=== PATIENT | male | born 1965 | race African-American/Black ===

== ENCOUNTER 2016-09-06 11:10 | Inpatient (IN) | payer OTHER ==
[2016-09-06 15:26] VITALS: BMI 26.6
[2016-09-06] MEDS ORDERED: chlordiazePOXIDE HCL 25 MG CAPSULE PO SCH (17:00)
--- NOTE | 2016-09-06 17:23 | HP ---
CIWA Score - CIWA Score Nausea/Vomitin-No Nausea/No Vomiting Muscle Tremors: 4-Moderate,w/Arms Extend Anxiety: 3 Agitation: 4-Moderately Restless Paroxysmal Sweats: 3 Orientation: 0-Oriented Tacttile Disturbances: 0-None Auditory Disturbances: 0-None Visual Disturbances: 0-None Headache: 0-None Present CIWA-Ar Total Score: 14 Admission ROS BHS - HPI Chief Complaint: I am using too much drugs and alcohol and need help. Allergies/Adverse Reactions: Allergies Allergy/AdvReac Type Severity Reaction Status Date / Time No Known Allergies Allergy Verified 09/06/16 15:50 History of Present Illness: pt is a 51yr old male with a history of alcohol dependence seeking detox for treatment. Exam Limitations: No Limitations - Ebola screening Have you traveled outside of the country in the last 21 days: No Have you had contact with anyone from an Ebola affected area: No Have you been sick,other than usual withdrawal symptoms: No Do you have a fever: No - Review of Systems Constitutional: Chills, Night Sweats, Unintentional Wgt. Loss EENT: reports: No Symptoms Reported Respiratory: reports: No Symptoms reported Cardiac: reports: No Symptoms Reported GI: reports: Poor Fluid Intake : reports: No Symptoms Reported Integumentary: reports: No Symptoms Reported Neuro: reports: Tingling, Tremors Endocrine: reports: Flushing Hematology: reports: No Symptoms Reported Psychiatric: reports: Judgement Intact, Orientated x3, Agitated, Anxious Other Systems: Reviewed and Negative Patient History - Patient Medical History Hx Anemia: No Hx Asthma: No Hx Chronic Obstructive Pulmonary Disease (COPD): No Hx Cancer: No Hx Cardiac Disorders: No Hx Congestive Heart Failure: No Hx Hypertension: No Hx Hypercholesterolemia: No Hx Pacemaker: No HX Cerebrovascular Accident: No Hx Seizures: No Hx Dementia: No Hx Diabetes: No Hx Gastrointestinal Disorders: No Hx Liver Disease: No Hx Genitourinary Disorders: No Hx Sexually Transmitted Disorders: No Hx Renal Disease (ESRD): No Hx Thyroid Disease: No Hx Human Immunodeficiency Virus (HIV): No (neg) Hx Hepatitis C: No (neg) Hx Depression: No Hx Suicide Attempt: No (denies) Hx Bipolar Disorder: No Hx Schizophrenia: No - Patient Surgical History Past Surgical History: No Hx Neurologic Surgery: No Hx Cataract Extraction: No Hx Cardiac Surgery: No Hx Lung Surgery: No Hx Breast Surgery: No Hx Breast Biopsy: No Hx Abdominal Surgery: No Hx Appendectomy: No Hx Cholecystectomy: No Hx Genitourinary Surgery: No Hx Section: No Hx Orthopedic Surgery: No Anesthesia Reaction: No - PPD History Previous Implant?: Yes Documented Results: Negative w/o proof Implanted On Prior R Admission?: Yes PPD to be Administered?: Yes - Reproductive History Patient is a Female of Child Bearing Age (11 -55 yrs old): No - Smoking Cessation Smoking history: Current every day smoker Have you smoked in the past 12 months: Yes Aproximately how many cigarettes per day: 20 Cigars Per Day: 0 Hx Chewing Tobacco Use: No Initiated information on smoking cessation: Yes 'Breaking Loose' booklet given: 09/06/16 - Substance & Tx. History Hx Alcohol Use: Yes Substance Use Type: Alcohol Hx Substance Use Treatment: Yes - Substances Abused Alcohol-beer/vodka Route: Oral Frequency: Daily Amount used: 2-6 pks./2 pts. Age of first use: 14 Date of Last Use: 09/06/16 Family Disease History - Family Disease History Family Disease History: Respiratory: Brother (ASTHMA,alcohol) Admission Physical Exam BHS - Vital Signs Vital Signs: Vital Signs - 24 hr 09/06/16 15:25 Temperature 97 F L Pulse Rate 64 Respiratory 18 Rate Blood Pressure 120/72 - Physical General Appearance: Yes: Appropriately Dressed, Mild Distress, Thin, Tremorous, Irritable, Sweating, Anxious HEENTM: Yes: Normal Voice Respiratory: Yes: Lungs Clear, Normal Breath Sounds, No Respiratory Distress Neck: Yes: Within Normal Limits Breast: Yes: Within Normal Limits Cardiology: Yes: Regular Rhythm, Regular Rate, S1, S2 Abdominal: Yes: Normal Bowel Sounds, Non Tender, Soft Genitourinary: Yes: Within Normal Limits Back: Yes: Normal Inspection Musculoskeletal: Yes: Back pain Extremities: Yes: Normal Inspection, Non-Tender, Tremors Neurological: Yes: Fully Oriented, Alert, Normal Response Integumentary: Yes: Normal Color Lymphatic: Yes: Within Normal Limits - Diagnostic (1) Alcohol dependence with uncomplicated withdrawal Current Visit: Yes Status: Chronic (2) Low back pain Current Visit: No Status: Chronic Qualifiers: Chronicity: chronic Back pain laterality: unspecified (3) Cocaine dependence Current Visit: Yes Status: Chronic Qualifiers: Substance use status: uncomplicated Qualified Code(s): F14.20 - Cocaine dependence, uncomplicated (4) Nicotine dependence Current Visit: Yes Status: Chronic Qualifiers: Nicotine product type: cigarettes Substance use status: uncomplicated Qualified Code(s): F17.210 - Nicotine dependence, cigarettes, uncomplicated Cleared for Admission BHS - Detox or Rehab [facility] Level of Care: Medically Managed Detox Regimen/Protocol: Librium S Breath Alcohol Content Breath Alcohol Content: 0.008 Urine Drug Screen - Results Drug Screen Negative: No Urine Drug Screen Results: OUMAR-Cocaine, OPI-Opiates
[2016-09-06] MEDS ORDERED: P-EPHED 60MG/TRIPROLIDI 2.5MG TABLET PO PRN (17:26)
[2016-09-06] MEDS ORDERED: IBUPROFEN 400 MG TABLET (FP) PO PRN (17:26)
[2016-09-06] MEDS ORDERED: ACETAMINOPHEN 325 MG TABLET (FP) PO PRN (17:26)
[2016-09-06] MEDS ORDERED: guaiFENesin/D-METHORPHAN HB 10 ML UNIT-DOSE CUPS PO PRN (17:26)
[2016-09-06] MEDS ORDERED: MAG HYDROX/AL HYDROX/SIMETH 30 ML UNIT-DOSE CUP PO PRN (17:26)
[2016-09-06] MEDS ORDERED: diphenhydrAMINE HCL 50 MG CAPSULE PO PRN (17:26)
[2016-09-06] MEDS ORDERED: hydrOXYzine PAMOATE 50 MG CAPSULE (FP) PO PRN (17:26)
[2016-09-06] MEDS ORDERED: NICOTINE POLACRILEX 4 MG GUM BC PRN (17:26)
[2016-09-06] MEDS ORDERED: MAGNESIUM HYDROX 2400MG/30ML ORAL SUSPENSION 30 ML CUP PO PRN (17:26)
[2016-09-06] MEDS ORDERED: chlordiazePOXIDE HCL 25 MG CAPSULE PO PRN (17:26)
[2016-09-06] MEDS ORDERED: MAGNESIUM CITRATE 300 ML BOTTLE PO PRN (17:26)
[2016-09-06] MEDS ORDERED: MENTHOL/PHENOL 1 EACH UD MM PRN (17:26)
[2016-09-06] MEDS ORDERED: LOPERAMIDE HCL 2 MG CAPSULE PO PRN (17:26)
[2016-09-06] MEDS ORDERED: chlordiazePOXIDE HCL 25 MG CAPSULE PO ONE (18:00)
[2016-09-06 22:29] LABS: URINE APPEARANCE CLEAR; URINE BILIRUBIN NEGATIVE (NEGATIVE); URINE BLOOD NEGATIVE (NEGATIVE); URINE COLOR YELLOW; URINE GLUCOSE (UA) NEGATIVE (NEGATIVE); URINE KETONE 1+ (NEGATIVE); URINE LEUK ESTERASE NEGATIVE (NEGATIVE); URINE NITRITE NEGATIVE (NEGATIVE); URINE PROTEIN NEGATIVE (NEGATIVE); URINE UROBILINOGEN NEGATIVE E.U./dl (0.2-1.0)
[2016-09-06] MEDS: THIAMINE HCL 100 MG TABLET (FP) PO SCH (22:54)
[2016-09-06] MEDS: chlordiazePOXIDE HCL 25 MG CAPSULE PO SCH (22:55)
[2016-09-07] MEDS: chlordiazePOXIDE HCL 25 MG CAPSULE PO SCH ×4 (07:02→23:09)
--- NOTE | 2016-09-07 09:14 | EKG ---
Test Reason : Blood Pressure : / mmHG Vent. Rate : 062 BPM Atrial Rate : 062 BPM P-R Int : 132 ms QRS Dur : 082 ms QT Int : 438 ms P-R-T Axes : 058 043 004 degrees QTc Int : 444 ms NORMAL SINUS RHYTHM NORMAL ECG NO PREVIOUS ECGS AVAILABLE Confirmed by SUGEY SHAIKH MD ([id number]) on 09/07/2016 9:14:11 AM Referred By: Confirmed By:SUGEY SHAIKH MD
[2016-09-07 10:07] LABS: MCH 31.8 pg (25.7-33.7); MCHC 33.3 g/dl (32.0-35.9); MEAN CELL VOLUME 95.4 fl (80-96); MEAN PLT VOLUME 8.8 fl (7.5-11.1); PLATELET COUNT 140 K/MM3 (134-434); RDW 14.1 % (11.9-15.9)
[2016-09-07 10:43] LABS: ALBUMIN 3.4 g/dl (3.4-5.0); ALK PHOS 64 U/L (45-117); ANION GAP 7 (8-16); CALCIUM 8.6 mg/dL (8.5-10.1); CO2 28 mmol/L (21-32); COCKROFT - GAULT 98.12; GLUCOSE,RANDOM 95 mg/dL (74-106); SGOT/AST 15 U/L (15-37); SGPT/ALT 21 U/L (12-78); TOT PROT 6.1 g/dl (6.4-8.2)
[2016-09-07] MEDS: PRENATAL VITAMINS W/ FOLIC ACID TABLET (FP) PO SCH (10:43)
[2016-09-07] MEDS: NICOTINE 21 MG/24 HOURS TOPICAL PATCH TD SCH (10:43)
--- NOTE | 2016-09-07 18:10 | PN ---
[facility] CIWA - CIWA Score Nausea/Vomitin-Mild Nausea/No Vomiting Muscle Tremors: 3 Anxiety: 2 Agitation: 3 Paroxysmal Sweats: 3 Orientation: 0-Oriented Tacttile Disturbances: 0-None Auditory Disturbances: 1-Very Mild Visual Disturbances: 2-Mild Sensitivity Headache: 0-None Present CIWA-Ar Total Score: 15 [facility] Progress Note (SOAP) Subjective: Fatigue, Sweating, Tremors. Objective: PT. A & O X 3. 09/07/16 18:09 Vital Signs Temperature 96.8 F L 09/07/16 06:53 Pulse Rate 54 L 09/07/16 06:53 Respiratory Rate 16 09/07/16 06:53 Blood Pressure 109/73 09/07/16 06:53 O2 Sat by Pulse Oximetry (%) Laboratory Last Values WBC 3.0 K/mm3 (4.0-10.0) L D 09/07/16 07:20 RBC 3.66 M/mm3 (4.00-5.60) L 09/07/16 07:20 Hgb 11.6 GM/dL (11.7-16.9) L D 09/07/16 07:20 Hct 34.9 % (35.4-49) L D 09/07/16 07:20 MCV 95.4 fl (80-96) 09/07/16 07:20 MCHC 33.3 g/dl (32.0-35.9) 09/07/16 07:20 RDW 14.1 % (11.9-15.9) 09/07/16 07:20 Plt Count 140 K/MM3 (134-434) D 09/07/16 07:20 MPV 8.8 fl (7.5-11.1) D 09/07/16 07:20 Sodium 140 mmol/L (136-145) 09/07/16 07:20 Potassium 3.7 mmol/L (3.5-5.1) 09/07/16 07:20 Chloride 105 mmol/L (98-107) 09/07/16 07:20 Carbon Dioxide 28 mmol/L (21-32) 09/07/16 07:20 Anion Gap 7 (8-16) L 09/07/16 07:20 BUN 15 mg/dL (7-18) D 09/07/16 07:20 Creatinine 1.0 mg/dL (0.7-1.3) 09/07/16 07:20 Creat Clearance w eGFR > 60 (>60) 09/07/16 07:20 Random Glucose 95 mg/dL (74-106) 09/07/16 07:20 Calcium 8.6 mg/dL (8.5-10.1) 09/07/16 07:20 Total Bilirubin 1.0 mg/dL (0.2-1.0) D 09/07/16 07:20 AST 15 U/L (15-37) 09/07/16 07:20 ALT 21 U/L (12-78) D 09/07/16 07:20 Alkaline Phosphatase 64 U/L (45-117) 09/07/16 07:20 Total Protein 6.1 g/dl (6.4-8.2) L 09/07/16 07:20 Albumin 3.4 g/dl (3.4-5.0) 09/07/16 07:20 Urine Color Yellow 09/06/16 21:30 Urine Appearance Clear 09/06/16 21:30 Urine pH 5.0 (5.0-8.0) D 09/06/16 21:30 Ur Specific [place] 1.015 (1.001-1.035) 09/06/16 21:30 Urine Protein Negative (NEGATIVE) 09/06/16 21:30 Urine Glucose (UA) Negative (NEGATIVE) 09/06/16 21:30 Urine Ketones 1+ (NEGATIVE) H 09/06/16 21:30 Urine Blood Negative (NEGATIVE) 09/06/16 21:30 Urine Nitrite Negative (NEGATIVE) 09/06/16 21:30 Urine Bilirubin Negative (NEGATIVE) 09/06/16 21:30 Urine Urobilinogen Negative E.U./dl (0.2-1.0) 09/06/16 21:30 Ur Leukocyte Esterase Negative (NEGATIVE) 09/06/16 21:30 RPR Titer Nonreactive (NONREACTIVE) 09/07/16 07:20 LABS NOTED. Assessment: 09/07/16 18:10 WITHDRAWAL SYMPTOMS. Plan: CONTINUE DETOX. REPEAT CBC TOMORROW AM. ADVISED PATIENT TO FOLLOW-UP WITH [facility] / REHAB MEDICAL PROVIDER AFTER DISCHARGE FROM DETOX FOR GENERAL MEDICAL ASSESSMENT AND FOR ABNORMAL ADMISSION LAB VALUES.
[2016-09-07] MEDS: THIAMINE HCL 100 MG TABLET (FP) PO SCH (23:09)
[2016-09-08] MEDS: chlordiazePOXIDE HCL 25 MG CAPSULE PO SCH ×3 (06:02→17:15)
[2016-09-08 09:56] LABS: MCH 31.9 pg (25.7-33.7); MCHC 33.5 g/dl (32.0-35.9); MEAN CELL VOLUME 95.2 fl (80-96); NEUTROPHILS 43.2 % (42.8-82.8); PLATELET COUNT 142 K/MM3 (134-434); RDW 13.9 % (11.9-15.9); WHITE BLOOD COUNT 2.3 K/mm3 (4.0-10.0)
[2016-09-08] MEDS: PRENATAL VITAMINS W/ FOLIC ACID TABLET (FP) PO SCH (10:28)
[2016-09-08] MEDS: NICOTINE 21 MG/24 HOURS TOPICAL PATCH TD SCH (10:30)
--- NOTE | 2016-09-08 16:01 | PN ---
S CIWA - CIWA Score Nausea/Vomitin Muscle Tremors: 4-Moderate,w/Arms Extend Anxiety: 4-Mod. Anxious/Guarded Agitation: 4-Moderately Restless Paroxysmal Sweats: No Perspiration Orientation: 0-Oriented Tacttile Disturbances: 1-Very Mild Itch/Numbness Auditory Disturbances: 0-None Visual Disturbances: 0-None Headache: 1-Very Mild CIWA-Ar Total Score: 17 [facility] Progress Note (SOAP) Subjective: Tremor, chills, sweating, interrupted sleep Objective: 09/08/16 15:59 Last Vital Signs Temp Pulse Resp BP Pulse Ox 98 F 83 18 99/65 09/08/16 13:57 09/08/16 13:57 09/08/16 13:57 09/08/16 13:57 Laboratory Tests 09/06/16 09/07/16 09/07/16 21:30 07:20 07:20 WBC 3.0 L D RBC 3.66 L Hgb 11.6 L D Hct 34.9 L D MCV 95.4 MCHC 33.3 RDW 14.1 Plt Count 140 D MPV 8.8 D Neutrophils % Lymphocytes % Monocytes % Eosinophils % Basophils % Sodium 140 Potassium 3.7 Chloride 105 Carbon Dioxide 28 Anion Gap 7 L BUN 15 D Creatinine 1.0 Creat Clearance w eGFR > 60 Random Glucose 95 Calcium 8.6 Total Bilirubin 1.0 D AST 15 ALT 21 D Alkaline Phosphatase 64 Total Protein 6.1 L Albumin 3.4 Urine Color Yellow Urine Appearance Clear Urine pH 5.0 D Ur Specific [place] 1.015 Urine Protein Negative Urine Glucose (UA) Negative Urine Ketones 1+ H Urine Blood Negative Urine Nitrite Negative Urine Bilirubin Negative Urine Urobilinogen Negative Ur Leukocyte Esterase Negative RPR Titer 09/07/16 09/08/16 07:20 08:00 WBC 2.3 L RBC 3.71 L Hgb 11.8 Hct 35.3 L MCV 95.2 MCHC 33.5 RDW 13.9 Plt Count 142 MPV 9.0 Neutrophils % 43.2 Lymphocytes % 37.0 Monocytes % 14.8 H Eosinophils % 4.0 Basophils % 1.0 Sodium Potassium Chloride Carbon Dioxide Anion Gap BUN Creatinine Creat Clearance w eGFR Random Glucose Calcium Total Bilirubin AST ALT Alkaline Phosphatase Total Protein Albumin Urine Color Urine Appearance Urine pH Ur Specific [place] Urine Protein Urine Glucose (UA) Urine Ketones Urine Blood Urine Nitrite Urine Bilirubin Urine Urobilinogen Ur Leukocyte Esterase RPR Titer Nonreactive Labs noted Assessment: 09/08/16 16:00 Withdrawal symptoms Plan: Continue detox
[2016-09-08] MEDS: THIAMINE HCL 100 MG TABLET (FP) PO SCH (22:36)
[2016-09-08] MEDS: chlordiazePOXIDE 5 MG CAPSULE PO SCH (22:37)
[2016-09-09] MEDS: chlordiazePOXIDE 5 MG CAPSULE PO SCH ×3 (05:50→17:47)
[2016-09-09] MEDS: PRENATAL VITAMINS W/ FOLIC ACID TABLET (FP) PO SCH (10:34)
[2016-09-09] MEDS: NICOTINE 21 MG/24 HOURS TOPICAL PATCH TD SCH (10:34)
--- NOTE | 2016-09-09 15:30 | PN ---
[facility] Progress Note (SOAP) Subjective: Sweating,interrupted sleep,restless. Objective: 09/09/16 15:29 Vital Signs - 8 hr 09/09/16 09:40 Temperature 96.8 F L Pulse Rate 72 Respiratory 18 Rate Blood Pressure 106/69 Laboratory Last Values WBC 2.3 K/mm3 (4.0-10.0) L 09/08/16 08:00 RBC 3.71 M/mm3 (4.00-5.60) L 09/08/16 08:00 Hgb 11.8 GM/dL (11.7-16.9) 09/08/16 08:00 Hct 35.3 % (35.4-49) L 09/08/16 08:00 MCV 95.2 fl (80-96) 09/08/16 08:00 MCHC 33.5 g/dl (32.0-35.9) 09/08/16 08:00 RDW 13.9 % (11.9-15.9) 09/08/16 08:00 Plt Count 142 K/MM3 (134-434) 09/08/16 08:00 MPV 9.0 fl (7.5-11.1) 09/08/16 08:00 Neutrophils % 43.2 % (42.8-82.8) 09/08/16 08:00 Lymphocytes % 37.0 % (8-40) 09/08/16 08:00 Monocytes % 14.8 % (3.8-10.2) H 09/08/16 08:00 Eosinophils % 4.0 % (0-4.5) 09/08/16 08:00 Basophils % 1.0 % (0-2.0) 09/08/16 08:00 Sodium 140 mmol/L (136-145) 09/07/16 07:20 Potassium 3.7 mmol/L (3.5-5.1) 09/07/16 07:20 Chloride 105 mmol/L (98-107) 09/07/16 07:20 Carbon Dioxide 28 mmol/L (21-32) 09/07/16 07:20 Anion Gap 7 (8-16) L 09/07/16 07:20 BUN 15 mg/dL (7-18) D 09/07/16 07:20 Creatinine 1.0 mg/dL (0.7-1.3) 09/07/16 07:20 Creat Clearance w eGFR > 60 (>60) 09/07/16 07:20 Random Glucose 95 mg/dL (74-106) 09/07/16 07:20 Calcium 8.6 mg/dL (8.5-10.1) 09/07/16 07:20 Total Bilirubin 1.0 mg/dL (0.2-1.0) D 09/07/16 07:20 AST 15 U/L (15-37) 09/07/16 07:20 ALT 21 U/L (12-78) D 09/07/16 07:20 Alkaline Phosphatase 64 U/L (45-117) 09/07/16 07:20 Total Protein 6.1 g/dl (6.4-8.2) L 09/07/16 07:20 Albumin 3.4 g/dl (3.4-5.0) 09/07/16 07:20 Urine Color Yellow 09/06/16 21:30 Urine Appearance Clear 09/06/16 21:30 Urine pH 5.0 (5.0-8.0) D 09/06/16 21:30 Ur Specific [place] 1.015 (1.001-1.035) 09/06/16 21:30 Urine Protein Negative (NEGATIVE) 09/06/16 21:30 Urine Glucose (UA) Negative (NEGATIVE) 09/06/16 21:30 Urine Ketones 1+ (NEGATIVE) H 09/06/16 21:30 Urine Blood Negative (NEGATIVE) 09/06/16 21:30 Urine Nitrite Negative (NEGATIVE) 09/06/16 21:30 Urine Bilirubin Negative (NEGATIVE) 09/06/16 21:30 Urine Urobilinogen Negative E.U./dl (0.2-1.0) 09/06/16 21:30 Ur Leukocyte Esterase Negative (NEGATIVE) 09/06/16 21:30 RPR Titer Nonreactive (NONREACTIVE) 09/07/16 07:20 labs noted Assessment: 09/09/16 15:29 Withdrawal sx. Plan: Continue detox
[2016-09-09] MEDS: chlordiazePOXIDE HCL 10 MG CAPSULE PO SCH (22:56)
[2016-09-09] MEDS: THIAMINE HCL 100 MG TABLET (FP) PO SCH (22:56)
[2016-09-10] MEDS: chlordiazePOXIDE HCL 10 MG CAPSULE PO SCH (05:46)
--- NOTE | 2016-09-10 09:42 | DS ---
[facility] Detox Discharge Summary Admission Date: 09/06/16 Discharge Date: 09/10/16 - History Present History: Alcohol Dependence, Cocaine Dependence Additional Comments: DETOX COMPLETED. ALERT O X 3. NAD. Pertinent Past History: LOW BACK PAIN DENIES ANY OTHER PMHx - Physical Exam Results Vital Signs: Vital Signs Temperature 96.9 F L 09/10/16 06:53 Pulse Rate 62 09/10/16 06:53 Respiratory Rate 18 09/10/16 06:53 Blood Pressure 108/79 09/10/16 06:53 O2 Sat by Pulse Oximetry (%) Pertinent Admission Physical Exam Findings: WITHDRAWAL SX Laboratory Last Values WBC 2.3 K/mm3 (4.0-10.0) L 09/08/16 08:00 RBC 3.71 M/mm3 (4.00-5.60) L 09/08/16 08:00 Hgb 11.8 GM/dL (11.7-16.9) 09/08/16 08:00 Hct 35.3 % (35.4-49) L 09/08/16 08:00 MCV 95.2 fl (80-96) 09/08/16 08:00 MCHC 33.5 g/dl (32.0-35.9) 09/08/16 08:00 RDW 13.9 % (11.9-15.9) 09/08/16 08:00 Plt Count 142 K/MM3 (134-434) 09/08/16 08:00 MPV 9.0 fl (7.5-11.1) 09/08/16 08:00 Neutrophils % 43.2 % (42.8-82.8) 09/08/16 08:00 Lymphocytes % 37.0 % (8-40) 09/08/16 08:00 Monocytes % 14.8 % (3.8-10.2) H 09/08/16 08:00 Eosinophils % 4.0 % (0-4.5) 09/08/16 08:00 Basophils % 1.0 % (0-2.0) 09/08/16 08:00 Sodium 140 mmol/L (136-145) 09/07/16 07:20 Potassium 3.7 mmol/L (3.5-5.1) 09/07/16 07:20 Chloride 105 mmol/L (98-107) 09/07/16 07:20 Carbon Dioxide 28 mmol/L (21-32) 09/07/16 07:20 Anion Gap 7 (8-16) L 09/07/16 07:20 BUN 15 mg/dL (7-18) D 09/07/16 07:20 Creatinine 1.0 mg/dL (0.7-1.3) 09/07/16 07:20 Creat Clearance w eGFR > 60 (>60) 09/07/16 07:20 Random Glucose 95 mg/dL (74-106) 09/07/16 07:20 Calcium 8.6 mg/dL (8.5-10.1) 09/07/16 07:20 Total Bilirubin 1.0 mg/dL (0.2-1.0) D 09/07/16 07:20 AST 15 U/L (15-37) 09/07/16 07:20 ALT 21 U/L (12-78) D 09/07/16 07:20 Alkaline Phosphatase 64 U/L (45-117) 09/07/16 07:20 Total Protein 6.1 g/dl (6.4-8.2) L 09/07/16 07:20 Albumin 3.4 g/dl (3.4-5.0) 09/07/16 07:20 Urine Color Yellow 09/06/16 21:30 Urine Appearance Clear 09/06/16 21:30 Urine pH 5.0 (5.0-8.0) D 09/06/16 21:30 Ur Specific [place] 1.015 (1.001-1.035) 09/06/16 21:30 Urine Protein Negative (NEGATIVE) 09/06/16 21:30 Urine Glucose (UA) Negative (NEGATIVE) 09/06/16 21:30 Urine Ketones 1+ (NEGATIVE) H 09/06/16 21:30 Urine Blood Negative (NEGATIVE) 09/06/16 21:30 Urine Nitrite Negative (NEGATIVE) 09/06/16 21:30 Urine Bilirubin Negative (NEGATIVE) 09/06/16 21:30 Urine Urobilinogen Negative E.U./dl (0.2-1.0) 09/06/16 21:30 Ur Leukocyte Esterase Negative (NEGATIVE) 09/06/16 21:30 RPR Titer Nonreactive (NONREACTIVE) 09/07/16 07:20 - Treatment Hospital Course: Detox Protocol Followed, Detoxed Safely, Responded well, Discharged Condition Good, Rehab Referral Accepted Patient has Accepted a Rehab Referral to: [facility] - Medication Discharge Medications: Ambulatory Orders NK [No Known Home Medication] 12/14/13 - Diagnosis (1) Alcohol dependence with uncomplicated withdrawal Status: Acute (2) Cocaine dependence Status: Acute Qualifiers: Substance use status: uncomplicated Qualified Code(s): F14.20 - Cocaine dependence, uncomplicated (3) Nicotine dependence Status: Acute Qualifiers: Nicotine product type: cigarettes Substance use status: in withdrawal Qualified Code(s): F17.213 - Nicotine dependence, cigarettes, with withdrawal (4) Low back pain Status: Chronic Qualifiers: Chronicity: chronic Back pain laterality: unspecified - AMA Did Patient Leave Against Medical Advice: No
[2016-09-10 09:59] VITALS: BP 106/74; PULSE 70; TEMP 96.4
== END 2016-09-10 11:10 | disposition home or self-care (01) | DRG 774 ==
LOC: YASAS 11:10 → Y3N 16:59
PROVIDERS: ADMIT Internal Medicine; ATTEND Internal Medicine
PROC: HZ2ZZZZ Detoxification Services for Substance Abuse Treatment (ICD-10-PCS; principal; 2016-09-06)
DX: F10.230 Alcohol dependence with withdrawal, uncomplicated (principal); F14.20 Cocaine dependence, uncomplicated; F17.210 Nicotine dependence, cigarettes, uncomplicated; M54.5 Low back pain; G89.29 Other chronic pain
CPT/HCPCS: 36415; 80053; 81003; 85025; 85027; 86593; 93005; 93010

== ENCOUNTER 2019-03-14 20:01 | Inpatient (IN) | payer OTHER ==
[2019-03-14 20:19] VITALS: BMI 27.3
[2019-03-14] MEDS ORDERED: SODIUM CHLORIDE 2,449 ML IV ONE (20:45)
[2019-03-14 21:45] LABS: BASO % 0.4 % (0-2.0); EOS % 0.8 % (0-4.5); HEMOGLOBIN 11.1 GM/dL (11.7-16.9); LYMPH % 6.4 % (8-40); MCH 32.4 pg (25.7-33.7); MCHC 33.7 g/dl (32.0-35.9); MEAN CELL VOLUME 96.2 fl (80-96); MEAN PLT VOLUME 8.4 fl (7.5-11.1); MONO % 8.7 % (3.8-10.2); NEUT % 83.7 % (42.8-82.8); PLATELET COUNT 222 K/MM3 (134-434); RBC 3.43 M/mm3 (4.00-5.60); RDW 13.3 % (11.9-15.9); VENOUS PC02 39.9 mmHg (38-52); VENOUS PH 7.44 (7.31-7.41); WHITE BLOOD COUNT 8.6 K/mm3 (4.0-10.0)
[2019-03-14 21:46] LABS: VENOUS PO2 < 49 mmHg (28-48)
[2019-03-14 22:20] LABS: ALBUMIN 3.4 g/dl (3.4-5.0); BILIRUBIN,TOTAL 0.7 mg/dL (0.2-1); BLOOD UREA NITROGEN 19.7 mg/dL (7-18); CALCIUM 8.8 mg/dL (8.5-10.1); POTASSIUM 3.9 mmol/L (3.5-5.1); TOT PROT 6.6 g/dl (6.4-8.2)
[2019-03-14] MEDS ORDERED: ACETAMINOPHEN 1000 MG/100 ML VIAL (NON FORMULARY) IVPB ONE (22:23)
[2019-03-14] MEDS ORDERED: PIPERACILLIN/TAZOB 3.375 GM 3.375 GM in DEXTROSE 5%-WATER - 50 ML IVPB ONE (22:23)
[2019-03-14] MEDS ORDERED: ACETAMINOPHEN INJECTION 100 ML IVPB ONE (23:14)
[2019-03-14] MEDS ORDERED: PIPERACILLIN/TAZOB 3.375 GM 3.375 GM/50 ML BAG IVPB ONE (23:14)
[2019-03-14 23:35] LABS: METHADONE, UR NEGATIVE ng/ml (CUTOFF=300); OPIATES, URI NEGATIVE ng/ml (CUTOFF=300); PHENCYCLIDINE,URINE NEGATIVE ng/ml (CUTOFF=25); URINE AMPHETAMINES NEGATIVE ng/ml (CUTOFF=500); URINE BARBITURATES NEGATIVE ng/ml (CUTOFF=200); URINE BENZODIAZEPINES NEGATIVE ng/ml (CUTOFF=200)
[2019-03-14 23:36] LABS: COCAINE, UR POSITIVE ng/ml (CUTOFF=300); EPI CELLS 5.2 /HPF (0-5/HPF); HYALINE CASTS 8 /lpf (0-8); PH,URINE 5.5 (5.0-8.0); URINE APPEARANCE CLEAR; URINE BACTERIA 24.4 /hpf (NEGATIVE); URINE BILIRUBIN NEGATIVE (NEGATIVE); URINE COLOR YELLOW; URINE GLUCOSE (UA) NEGATIVE (NEGATIVE); URINE KETONE TRACE (NEGATIVE); URINE LEUK ESTERASE 1+ (NEGATIVE); URINE NITRITE NEGATIVE (NEGATIVE); URINE PROTEIN TRACE (NEGATIVE); URINE RBC 2 /hpf (0-4); URINE WBC 11 /hpf (0-5)
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
[2019-03-15] MEDS ORDERED: CEFTRIAXONE 1,000 MG in DEXTROSE 5%-WATER - 50 ML IVPB STA (02:54)
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
[2019-03-15] MEDS ORDERED: cefTRIAXone SODIUM 1 GM VIAL ONE (04:16)
[2019-03-15] MEDS ORDERED: CEFTRIAXONE 1 GM/50 ML BAG ONE (04:16)
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
[2019-03-15 05:09] LABS: INR 1.12 (0.83-1.09); PROTHROMBIN TIME (PATIENT) 13.2 SEC (9.7-13.0)
[2019-03-15 05:12] LABS: ACTIVATED PTT 29.6 SECONDS (25.2-36.5)
[2019-03-15] MEDS: SODIUM CHLORIDE 1,000 ML IV SCH (05:15)
[2019-03-15] MEDS ORDERED: FOLIC ACID INJECTION - 1 MG, THIAMINE HCL 100 MG, MULTIVIT INJECTION ADULT 10 ML in SOD... IVPB ONE (05:15)
[2019-03-15] MEDS ORDERED: chlordiazePOXIDE HCL 10 MG CAPSULE PO PRN (05:23)
[2019-03-15] MEDS ORDERED: chlordiazePOXIDE HCL 25 MG CAPSULE ONE (05:30)
[2019-03-15] MEDS ORDERED: CLINDAMYCIN 600MG PREMIX IVPB 600 MG/50 ML BAG IVPB ONE (05:31)
[2019-03-15] MEDS: chlordiazePOXIDE HCL 25 MG CAPSULE PO SCH ×3 (05:46→21:19)
[2019-03-15] MEDS: CLINDAMYCIN 600MG PREMIX IVPB 600 MG/50 ML BAG IVPB SCH ×4 (05:46→21:17)
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
--- NOTE | 2019-03-15 10:03 | EKG ---
Test Reason : Blood Pressure : / mmHG Vent. Rate : 070 BPM Atrial Rate : 070 BPM P-R Int : 128 ms QRS Dur : 080 ms QT Int : 456 ms P-R-T Axes : 057 047 -16 degrees QTc Int : 492 ms NORMAL SINUS RHYTHM NONSPECIFIC T WAVE ABNORMALITY PROLONGED QT ABNORMAL ECG WHEN COMPARED WITH ECG OF 06-SEP-2016 17:42, NO SIGNIFICANT CHANGE WAS FOUND Confirmed by AYANA LO MD ([id number]) on 03/15/2019 10:02:40 AM Referred By: Confirmed By:AYANA LO MD
[2019-03-15] MEDS: FOLIC ACID 1 MG TABLET (FP) PO SCH (11:04)
[2019-03-15] MEDS: MULTIVITAMINS (DAILY MVI) TABLET (FP) PO SCH (11:04)
[2019-03-15] MEDS: THIAMINE HCL 100 MG TABLET (FP) PO SCH (11:05)
[2019-03-15] MEDS: ENOXAPARIN NA (PORCINE) 40 MG/0.4 ML DISP.SYRIN SQ SCH (11:11)
[2019-03-15] MEDS: CEFTRIAXONE 1 GM in DEXTROSE 5%-WATER - 50 ML IVPB SCH (11:39)
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
[2019-03-15] MEDS ORDERED: ACETAMINOPHEN 325 MG TABLET (FP) PO ONE (21:22)
[2019-03-16] MEDS: SODIUM CHLORIDE 1,000 ML IV SCH (06:52)
[2019-03-16] MEDS: CLINDAMYCIN 600MG PREMIX IVPB 600 MG/50 ML BAG IVPB SCH ×2 (06:53→14:36)
[2019-03-16] MEDS: chlordiazePOXIDE 5 MG CAPSULE PO SCH ×3 (06:54→21:37)
[2019-03-16 08:51] LABS: BASO % 0.4 % (0-2.0); EOS % 2.7 % (0-4.5); HEMATOCRIT 28.4 % (35.4-49); HEMOGLOBIN 9.6 GM/dL (11.7-16.9); LYMPH % 14.6 % (8-40); MCH 32.2 pg (25.7-33.7); MCHC 33.9 g/dl (32.0-35.9); MEAN CELL VOLUME 94.8 fl (80-96); MEAN PLT VOLUME 8.4 fl (7.5-11.1); MONO % 10.1 % (3.8-10.2); NEUT % 72.2 % (42.8-82.8); PLATELET COUNT 180 K/MM3 (134-434); RDW 13.2 % (11.9-15.9)
[2019-03-16] MEDS ORDERED: cefTRIAXone SODIUM 1 GM VIAL ONE (08:51)
[2019-03-16] MEDS ORDERED: DEXTROSE 5%-WATER - 50 ML IVPB ONE (08:52)
[2019-03-16 09:25] LABS: ALBUMIN 2.3 g/dl (3.4-5.0); BILIRUBIN,TOTAL 0.5 mg/dL (0.2-1); BLOOD UREA NITROGEN 9.1 mg/dL (7-18); CALCIUM 7.6 mg/dL (8.5-10.1); CREATININE 0.8 mg/dL (0.55-1.3); PHOSPHOROUS 2.1 mg/dL (2.5-4.9); POTASSIUM 3.3 mmol/L (3.5-5.1); TOT PROT 5.2 g/dl (6.4-8.2)
[2019-03-16] MEDS: FOLIC ACID 1 MG TABLET (FP) PO SCH (09:25)
[2019-03-16] MEDS: CEFTRIAXONE 1 GM in DEXTROSE 5%-WATER - 50 ML IVPB SCH (09:25)
[2019-03-16] MEDS: THIAMINE HCL 100 MG TABLET (FP) PO SCH (09:25)
[2019-03-16] MEDS: MULTIVITAMINS (DAILY MVI) TABLET (FP) PO SCH (09:25)
[2019-03-16] MEDS: ENOXAPARIN NA (PORCINE) 40 MG/0.4 ML DISP.SYRIN SQ SCH (09:25)
[2019-03-16] MEDS ORDERED: POTASSIUM CHLORIDE TABS 20 MEQ TABLET.ER (FP) PO ONE (11:41)
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
[2019-03-16] MEDS ORDERED: SODIUM CHLORIDE 1,000 ML IV SCH (14:47)
[2019-03-16] MEDS: POTASSIUM CHLORIDE TABS 20 MEQ TABLET.ER (FP) PO SCH (15:39)
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
[2019-03-17] MEDS ORDERED: chlordiazePOXIDE HCL 10 MG CAPSULE PO PRN
[2019-03-17] MEDS ORDERED: chlordiazePOXIDE 5 MG CAPSULE ONE ×3 (06:00→21:48)
[2019-03-17] MEDS: chlordiazePOXIDE HCL 10 MG CAPSULE PO SCH ×3 (06:07→21:49)
[2019-03-17 09:11] LABS: BASO % 0.6 % (0-2.0); EOS % 5.2 % (0-4.5); HEMATOCRIT 28.5 % (35.4-49); HEMOGLOBIN 9.8 GM/dL (11.7-16.9); LYMPH % 18.5 % (8-40); MCH 32.7 pg (25.7-33.7); MCHC 34.5 g/dl (32.0-35.9); MEAN CELL VOLUME 94.7 fl (80-96); MEAN PLT VOLUME 8.5 fl (7.5-11.1); MONO % 9.3 % (3.8-10.2); NEUT % 66.4 % (42.8-82.8); PLATELET COUNT 187 K/MM3 (134-434); RBC 3.01 M/mm3 (4.00-5.60); RDW 13.6 % (11.9-15.9)
[2019-03-17 09:56] LABS: ALBUMIN 2.4 g/dl (3.4-5.0); BILIRUBIN,TOTAL 0.4 mg/dL (0.2-1); CALCIUM 8.2 mg/dL (8.5-10.1); CREATININE 0.9 mg/dL (0.55-1.3); POTASSIUM 4.1 mmol/L (3.5-5.1); TOT PROT 5.4 g/dl (6.4-8.2)
[2019-03-17] MEDS: POTASSIUM CHLORIDE TABS 20 MEQ TABLET.ER (FP) PO SCH (10:33)
[2019-03-17] MEDS: FOLIC ACID 1 MG TABLET (FP) PO SCH (10:34)
[2019-03-17] MEDS: ENOXAPARIN NA (PORCINE) 40 MG/0.4 ML DISP.SYRIN SQ SCH (10:34)
[2019-03-17] MEDS: MULTIVITAMINS (DAILY MVI) TABLET (FP) PO SCH (10:34)
[2019-03-17] MEDS: THIAMINE HCL 100 MG TABLET (FP) PO SCH (10:34)
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
[2019-03-18] MEDS ORDERED: chlordiazePOXIDE HCL 10 MG CAPSULE PO ONE (05:00)
[2019-03-18] MEDS ORDERED: chlordiazePOXIDE 5 MG CAPSULE ONE (05:22)
[2019-03-18 08:39] LABS: BASO % 0.8 % (0-2.0); EOS % 7.9 % (0-4.5); HEMATOCRIT 29.3 % (35.4-49); HEMOGLOBIN 9.9 GM/dL (11.7-16.9); LYMPH % 25.4 % (8-40); MCH 32.3 pg (25.7-33.7); MEAN CELL VOLUME 95.1 fl (80-96); MEAN PLT VOLUME 8.2 fl (7.5-11.1); MONO % 8.9 % (3.8-10.2); PLATELET COUNT 197 K/MM3 (134-434); RBC 3.08 M/mm3 (4.00-5.60); RDW 13.3 % (11.9-15.9)
[2019-03-18 09:35] LABS: ALBUMIN 2.5 g/dl (3.4-5.0); ALK PHOS 66 U/L (45-117); ANION GAP 4 MMOL/L (8-16); BILIRUBIN,TOTAL 0.4 mg/dL (0.2-1); BLOOD UREA NITROGEN 9.5 mg/dL (7-18); CALCIUM 8.4 mg/dL (8.5-10.1); CHLORIDE 109 mmol/L (98-107); CO2 27 mmol/L (21-32); CREATININE 0.8 mg/dL (0.55-1.3); GLUCOSE,RANDOM 101 mg/dL (74-106); POTASSIUM 4.1 mmol/L (3.5-5.1); SGOT/AST 132 U/L (15-37); SGPT/ALT 148 U/L (13-61); SODIUM 140 mmol/L (136-145); TOT PROT 5.6 g/dl (6.4-8.2)
[2019-03-18] MEDS: THIAMINE HCL 100 MG TABLET (FP) PO SCH (09:43)
[2019-03-18] MEDS: FOLIC ACID 1 MG TABLET (FP) PO SCH (09:43)
[2019-03-18] MEDS: ENOXAPARIN NA (PORCINE) 40 MG/0.4 ML DISP.SYRIN SQ SCH (09:44)
[2019-03-18] MEDS: POTASSIUM CHLORIDE TABS 20 MEQ TABLET.ER (FP) PO SCH (09:44)
[2019-03-18] MEDS: MULTIVITAMINS (DAILY MVI) TABLET (FP) PO SCH (09:44)
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
[2019-03-18 16:10] VITALS: BP 108/72; PULSE 80; TEMP 98.7
== END 2019-03-18 16:11 | disposition home or self-care (01) | DRG 351 ==
LOC: JER 20:01 → JERBED 03-15 03:22 → J5S 03-15 05:50
PROVIDERS: ADMIT Internal Medicine; ATTEND Internal Medicine
PROC: HZ2ZZZZ Detoxification Services for Substance Abuse Treatment (ICD-10-PCS; principal; 2019-03-14)
DX: T79.6XXA Traumatic ischemia of muscle, initial encounter (principal); L03.116 Cellulitis of left lower limb; L03.115 Cellulitis of right lower limb; F10.239 Alcohol dependence with withdrawal, unspecified; F17.210 Nicotine dependence, cigarettes, uncomplicated; F14.23 Cocaine dependence with withdrawal; R50.9 Fever, unspecified; D53.9 Nutritional anemia, unspecified; I10 Essential (primary) hypertension; E78.5 Hyperlipidemia, unspecified; N39.0 Urinary tract infection, site not specified; D63.8 Anemia in other chronic diseases classified elsewhere
CPT/HCPCS: 36415; 70450-TC; 71045-TC-FY; 72170-TC-FY; 72192-TC; 73552-TC-LT-FY; 73552-TC-RT-FY; 73700-TC-RT; 76775-TC; 80053; 80307; 81003; 82550; 82553; 82607; 82728; 82746; 82803; 83036; 83540; 83550; 83605; 83735; 84100; 84443; 84484; 85025; 85044; 85610; 85730; 87040; 87086; 93005; 93010; 99285-25; J0131; J7030

== ENCOUNTER 2019-03-25 17:52 | Inpatient (IN) | payer OTHER ==
[2019-03-25 18:36] VITALS: BMI 27.2
--- NOTE | 2019-03-25 21:58 | HP ---
CIWA Score Nausea/Vomitin-No Nausea/No Vomiting Muscle Tremors: None Anxiety: 0-No Anxiety, at Ease Agitation: 3 Paroxysmal Sweats: 3 Orientation: 0-Oriented Tacttile Disturbances: 0-None Auditory Disturbances: 3-Moderate Harsh/Frighten (noise) Visual Disturbances: 3-Moderate Sensitivity (to light) Headache: 0-None Present CIWA-Ar Total Score: 12 - Admission Criteria OASAS Guidelines: Admission for Medically Managed Detox: Requires at least one of the followin. CIWA greater than 12 2. Seizures within the past 24 hours 3. Delirium tremens within the past 24 hours 4. Hallucinations within the past 24 hours 5. Acute intervention needed for co occurring medical disorder 6. Acute intervention needed for co occurring psychiatric disorder 7. Severe withdrawal that cannot be handled at a lower level of care (continued vomiting, continued diarrhea, abnormal vital signs) requiring intravenous medication and/or fluids 8. Patient presents the following: CIWA greater than 12 Admission Criteria Met: Admission criteria met Admitting History and Physical - Smoking History Smoking history: Current every day smoker Have you smoked in the past 12 months: No Aproximately how many cigarettes per day: 20 If you are a former smoker, when did you quit?: 2008 - Alcohol/Substance Use Hx Alcohol Use: Yes Admission ROS [facility] Chief Complaint: c/o worsening withdrawal sx's Allergies/Adverse Reactions: Allergies Allergy/AdvReac Type Severity Reaction Status Date / Time No Known Allergies Allergy Verified 03/25/19 18:30 History of Present Illness: here for alcohol detox. client is self referred. known to program. last here 2018. present with c/o worsening withdrawal sx's. last alcohol intake 1 day ago. he reports daily intake. 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 denies hx/ o seizures black outs. client recently dc from [facility] 1 week ago after 3 day stay for .... he was detoxed with librium . client reports immediately relapsing after dc. denies any significant period of clean time. homeless, unemployed, deies legals Exam Limitations: No Limitations - Ebola screening Have you traveled outside of the country in the last 21 days: No (N) Have you had contact with anyone from an Ebola affected area: No Do you have a fever: No - Review of Systems Constitutional: Chills, Night Sweats, Changes in sleep EENT: reports: No Symptoms Reported Respiratory: reports: No Symptoms reported Cardiac: reports: No Symptoms Reported GI: reports: No Symptoms Reported : reports: No Symptoms Reported Musculoskeletal: reports: No Symptoms Reported Integumentary: reports: No Symptoms Reported Neuro: reports: No Symptoms reported Endocrine: reports: No Symptoms Reported Hematology: reports: No Symptoms Reported Psychiatric: reports: Judgement Intact, Orientated x3, Agitated (irritable) Other Systems: Reviewed and Negative Patient History - Patient Medical History Hx Anemia: No Hx Asthma: No Hx Chronic Obstructive Pulmonary Disease (COPD): No Hx Cancer: No Hx Cardiac Disorders: No Hx Congestive Heart Failure: No Hx Hypertension: No Hx Hypercholesterolemia: No Hx Pacemaker: No HX Cerebrovascular Accident: No Hx Seizures: No Hx Dementia: No Hx Diabetes: No Hx Gastrointestinal Disorders: No Hx Liver Disease: No Hx Genitourinary Disorders: No Hx Sexually Transmitted Disorders: No Hx Renal Disease (ESRD): No Hx Thyroid Disease: No Hx Human Immunodeficiency Virus (HIV): No Hx Hepatitis C: No Hx Depression: No Hx Suicide Attempt: No Hx Bipolar Disorder: No Hx Schizophrenia: No - Patient Surgical History Past Surgical History: No Hx Neurologic Surgery: No Hx Cataract Extraction: No Hx Cardiac Surgery: No Hx Lung Surgery: No Hx Breast Surgery: No Hx Breast Biopsy: No Hx Abdominal Surgery: No Hx Appendectomy: No Hx Cholecystectomy: No Hx Genitourinary Surgery: No Hx Section: No Hx Orthopedic Surgery: No Anesthesia Reaction: No - PPD History Previous Implant?: Yes Documented Results: Negative w/proof Implanted On Prior [facility] Admission?: No Date: 09/08/16 Results: 0 mm PPD to be Administered?: Yes - Smoking Cessation Smoking history: Never smoked Have you smoked in the past 12 months: No Cigars Per Day: 0 Hx Chewing Tobacco Use: No Initiated information on smoking cessation: No - Substance & Tx. History Hx Alcohol Use: Yes Hx Substance Use: Yes Substance Use Type: Alcohol, Cocaine Hx Substance Use Treatment: Yes ([facility]) - Substances abused Alcohol Substance route: Oral Frequency: Daily Amount used: 4 CANS OF [place], 1 [place] Age of first use: 17 Date of last use: 03/24/19 Admission Physical Exam BHS - Vital Signs Vital Signs: Vital Signs - 24 hr 03/25/19 18:33 Temperature 98.8 F Pulse Rate 68 Respiratory 16 Rate Blood Pressure 110/70 - Physical General Appearance: Yes: Mild Distress, Irritable HEENTM: Yes: EOMI, Normocephalic, JOSEFINA, Pharynx Normal Respiratory: Yes: Chest Non-Tender, Lungs Clear, Normal Breath Sounds, No Respiratory Distress, No Accessory Muscle Use Neck: Yes: No masses,lesions,Nodules, Supple, Trachea in good position Breast: Yes: Breasts Symetrical Cardiology: Yes: Regular Rhythm, Regular Rate, S1, S2 Abdominal: Yes: Non Tender, Soft, Increased Bowel Sounds Genitourinary: Yes: Within Normal Limits Back: Yes: Normal Inspection Musculoskeletal: Yes: full range of Motion, Gait Steady Extremities: Yes: Non-Tender Neurological: Yes: Fully Oriented, Alert, Motor Strength 5/5 Integumentary: Yes: Dry, Warm Lymphatic: Yes: Within Normal Limits - Diagnostic (1) Alcohol dependence with uncomplicated withdrawal Current Visit: Yes Status: Acute (2) Cocaine dependence Current Visit: Yes Status: Acute Qualifiers: Substance use status: uncomplicated Qualified Code(s): F14.20 - Cocaine dependence, uncomplicated Cleared for Admission S - Detox or Rehab [facility] Level of Care: Medically Managed Claeared for Rehab Admission: No Breathalyzer - Breathalyzer Breathalyzer: 0 Urine Drug Screen - Test Device Lot number: [id number] Expiration date: 12/01/20 - Control Is test valid?: No - Results Drug screen NEGATIVE: No Urine drug screen results: OUMAR-Cocaine, BZO-Benzodiazepines Inpatient Rehab Admission - Rehab Decision to Admit Inpatient rehab admission?: No
[2019-03-25] MEDS ORDERED: BISMUTH SUBSALICYLATE 524 MG/30 ML UD PO PRN (22:03)
[2019-03-25] MEDS ORDERED: DICYCLOMINE HCL 10 MG CAPSULE PO PRN (22:03)
[2019-03-25] MEDS ORDERED: ACETAMINOPHEN 325 MG TABLET (FP) PO PRN ×2 (22:03)
[2019-03-25] MEDS ORDERED: MAG HYDROX/AL HYDROX/SIMETH 30 ML UNIT-DOSE CUP PO PRN (22:03)
[2019-03-25] MEDS ORDERED: MENTHOL/PHENOL 1 EACH UD MM PRN (22:03)
[2019-03-25] MEDS ORDERED: ONDANSETRON *ODT* 4 MG TABLET SL PRN (22:03)
[2019-03-25] MEDS ORDERED: LORazepam 1 MG TABLET PO PRN (22:03)
[2019-03-25] MEDS ORDERED: guaiFENesin 200 MG/10 ML 10 ML UNIT-DOSE CUPS PO PRN (22:03)
[2019-03-25] MEDS ORDERED: MAGNESIUM HYDROX 2400MG/30ML ORAL SUSPENSION 30 ML CUP PO PRN (22:03)
[2019-03-25] MEDS ORDERED: P-EPHED 60MG/TRIPROLIDI 2.5MG TABLET PO PRN (22:03)
[2019-03-25] MEDS ORDERED: MELATONIN 5 MG TABLETS PO PRN (22:03)
[2019-03-25] MEDS ORDERED: hydrOXYzine PAMOATE 25 MG CAPSULE (FP) PO PRN (22:03)
[2019-03-25] MEDS ORDERED: IBUPROFEN 400 MG TABLET (FP) PO PRN (22:03)
[2019-03-25] MEDS ORDERED: MAGNESIUM CITRATE 300 ML BOTTLE PO PRN (22:03)
[2019-03-25] MEDS ORDERED: METHOCARBAMOL 500 MG TABLET PO PRN (22:03)
[2019-03-25] MEDS: LORazepam 2 MG TABLET PO SCH (23:21)
[2019-03-26] MEDS: LORazepam 2 MG TABLET PO SCH ×4 (07:55→22:12)
[2019-03-26 09:58] LABS: ALBUMIN 2.7 g/dl (3.4-5.0); BILIRUBIN,TOTAL 0.4 mg/dL (0.2-1); BLOOD UREA NITROGEN 16.5 mg/dL (7-18); CALCIUM 7.9 mg/dL (8.5-10.1); CREATININE 0.9 mg/dL (0.55-1.3); POTASSIUM 4.1 mmol/L (3.5-5.1); TOT PROT 5.6 g/dl (6.4-8.2)
[2019-03-26 10:00] LABS: HEMATOCRIT 29.3 % (35.4-49); HEMOGLOBIN 9.8 GM/dL (11.7-16.9); MCH 32.1 pg (25.7-33.7); MCHC 33.3 g/dl (32.0-35.9); MEAN CELL VOLUME 96.4 fl (80-96); MEAN PLT VOLUME 8.2 fl (7.5-11.1); PLATELET COUNT 246 K/MM3 (134-434); RBC 3.04 M/mm3 (4.00-5.60); RDW 13.9 % (11.9-15.9); WHITE BLOOD COUNT 2.6 K/mm3 (4.0-10.0)
[2019-03-26] MEDS: PRENATAL VITAMINS W/ FOLIC ACID TABLET (FP) PO SCH (10:28)
--- NOTE | 2019-03-26 14:24 | PN ---
S CIWA - CIWA Score Nausea/Vomitin-Mild Nausea/No Vomiting Muscle Tremors: 1-None Visible, but [place] Anxiety: 2 Agitation: 2 Paroxysmal Sweats: No Perspiration Orientation: 0-Oriented Tacttile Disturbances: 1-Very Mild Itch/Numbness Auditory Disturbances: 0-None Visual Disturbances: 0-None Headache: 2-Mild CIWA-Ar Total Score: 9 BHS Progress Note (SOAP) Subjective: alert,irritable,anxious,interrupted sleep,tremor Objective: 03/26/19 14:22 Vital Signs Temperature 97.2 F L 03/26/19 09:07 Pulse Rate 67 03/26/19 09:07 Respiratory Rate 16 03/26/19 09:07 Blood Pressure 94/56 L 03/26/19 09:07 O2 Sat by Pulse Oximetry (%) 03/26/19 14:22 Laboratory Last Values WBC 2.6 K/mm3 (4.0-10.0) L 03/26/19 08:00 RBC 3.04 M/mm3 (4.00-5.60) L 03/26/19 08:00 Hgb 9.8 GM/dL (11.7-16.9) L 03/26/19 08:00 Hct 29.3 % (35.4-49) L 03/26/19 08:00 MCV 96.4 fl (80-96) H 03/26/19 08:00 MCH 32.1 pg (25.7-33.7) 03/26/19 08:00 MCHC 33.3 g/dl (32.0-35.9) 03/26/19 08:00 RDW 13.9 % (11.9-15.9) 03/26/19 08:00 Plt Count 246 K/MM3 (134-434) D 03/26/19 08:00 MPV 8.2 fl (7.5-11.1) 03/26/19 08:00 Sodium 140 mmol/L (136-145) 03/26/19 08:00 Potassium 4.1 mmol/L (3.5-5.1) 03/26/19 08:00 Chloride 110 mmol/L (98-107) H 03/26/19 08:00 Carbon Dioxide 28 mmol/L (21-32) 03/26/19 08:00 Anion Gap 3 MMOL/L (8-16) L 03/26/19 08:00 BUN 16.5 mg/dL (7-18) 03/26/19 08:00 Creatinine 0.9 mg/dL (0.55-1.3) 03/26/19 08:00 Est GFR (CKD-EPI)AfAm 112.62 03/26/19 08:00 Est GFR (CKD-EPI)NonAf 97.17 03/26/19 08:00 Random Glucose 99 mg/dL (74-106) 03/26/19 08:00 Calcium 7.9 mg/dL (8.5-10.1) L 03/26/19 08:00 Total Bilirubin 0.4 mg/dL (0.2-1) 03/26/19 08:00 AST 16 U/L (15-37) 03/26/19 08:00 ALT 52 U/L (13-61) 03/26/19 08:00 Alkaline Phosphatase 65 U/L (45-117) 03/26/19 08:00 Total Protein 5.6 g/dl (6.4-8.2) L 03/26/19 08:00 Albumin 2.7 g/dl (3.4-5.0) L 03/26/19 08:00 RPR Titer Nonreactive (NONREACTIVE) 03/26/19 08:00 Assessment: 03/26/19 14:23 withdrawal symptom Plan: continue detox ativan regimen,wbc 2,600,hb9.8,hct 29.3,ferrous sulfate 325 mgs po bid
[2019-03-26] MEDS: FERROUS SO4 325 MG TABLET (FP) PO SCH (15:41)
[2019-03-26] MEDS: THIAMINE HCL 100 MG TABLET (FP) PO SCH (22:12)
[2019-03-27] MEDS: LORazepam 1 MG TABLET PO SCH ×4 (06:35→22:23)
[2019-03-27] MEDS: PRENATAL VITAMINS W/ FOLIC ACID TABLET (FP) PO SCH (10:43)
[2019-03-27] MEDS: FERROUS SO4 325 MG TABLET (FP) PO SCH (10:43)
[2019-03-27 10:50] LABS: HEMATOCRIT 30.7 % (35.4-49); HEMOGLOBIN 10.3 GM/dL (11.7-16.9); MCHC 33.4 g/dl (32.0-35.9); MEAN CELL VOLUME 95.8 fl (80-96); MEAN PLT VOLUME 8.2 fl (7.5-11.1); PLATELET COUNT 256 K/MM3 (134-434); RBC 3.21 M/mm3 (4.00-5.60); RDW 13.3 % (11.9-15.9); WHITE BLOOD COUNT 2.5 K/mm3 (4.0-10.0)
--- NOTE | 2019-03-27 12:19 | PN ---
S CIWA - CIWA Score Nausea/Vomitin-No Nausea/No Vomiting Muscle Tremors: None Anxiety: 3 Agitation: 0-Normal Activity Paroxysmal Sweats: 3 Orientation: 0-Oriented Tacttile Disturbances: 0-None Auditory Disturbances: 0-None Visual Disturbances: 0-None Headache: 2-Mild CIWA-Ar Total Score: 8 S Progress Note (SOAP) Subjective: c/o tiredness, anxiety, sweats, and headache. Objective: 03/27/19 12:20 Vital Signs 03/27/19 03/27/19 06:43 09:19 Temperature 98.1 F 98.4 F Pulse Rate 61 72 Respiratory 18 18 Rate Blood Pressure 115/68 108/78 Laboratory Last Values WBC 2.5 K/mm3 (4.0-10.0) L 03/27/19 07:40 RBC 3.21 M/mm3 (4.00-5.60) L 03/27/19 07:40 Hgb 10.3 GM/dL (11.7-16.9) L 03/27/19 07:40 Hct 30.7 % (35.4-49) L 03/27/19 07:40 MCV 95.8 fl (80-96) 03/27/19 07:40 MCH 32.0 pg (25.7-33.7) 03/27/19 07:40 MCHC 33.4 g/dl (32.0-35.9) 03/27/19 07:40 RDW 13.3 % (11.9-15.9) 03/27/19 07:40 Plt Count 256 K/MM3 (134-434) 03/27/19 07:40 MPV 8.2 fl (7.5-11.1) 03/27/19 07:40 Sodium 140 mmol/L (136-145) 03/26/19 08:00 Potassium 4.1 mmol/L (3.5-5.1) 03/26/19 08:00 Chloride 110 mmol/L (98-107) H 03/26/19 08:00 Carbon Dioxide 28 mmol/L (21-32) 03/26/19 08:00 Anion Gap 3 MMOL/L (8-16) L 03/26/19 08:00 BUN 16.5 mg/dL (7-18) 03/26/19 08:00 Creatinine 0.9 mg/dL (0.55-1.3) 03/26/19 08:00 Est GFR (CKD-EPI)AfAm 112.62 03/26/19 08:00 Est GFR (CKD-EPI)NonAf 97.17 03/26/19 08:00 Random Glucose 99 mg/dL (74-106) 03/26/19 08:00 Calcium 7.9 mg/dL (8.5-10.1) L 03/26/19 08:00 Total Bilirubin 0.4 mg/dL (0.2-1) 03/26/19 08:00 AST 16 U/L (15-37) 03/26/19 08:00 ALT 52 U/L (13-61) 03/26/19 08:00 Alkaline Phosphatase 65 U/L (45-117) 03/26/19 08:00 Total Protein 5.6 g/dl (6.4-8.2) L 03/26/19 08:00 Albumin 2.7 g/dl (3.4-5.0) L 03/26/19 08:00 RPR Titer Nonreactive (NONREACTIVE) 03/26/19 08:00 Labs noted. Assessment: AOX3, in no acute respiratory distress. Full ROM, ambulating in the unit. withdrawal symptoms. Plan: continue detox.
[2019-03-27] MEDS: THIAMINE HCL 100 MG TABLET (FP) PO SCH (22:23)
[2019-03-28] MEDS ORDERED: LORazepam 0.5 MG TABLET PO PRN
[2019-03-28] MEDS: LORazepam 0.5 MG TABLET PO SCH ×4 (05:41→23:43)
[2019-03-28] MEDS: PRENATAL VITAMINS W/ FOLIC ACID TABLET (FP) PO SCH (10:46)
[2019-03-28] MEDS: FERROUS SO4 325 MG TABLET (FP) PO SCH (10:46)
--- NOTE | 2019-03-28 14:17 | PN ---
S CIWA - CIWA Score Nausea/Vomitin-No Nausea/No Vomiting Muscle Tremors: 1-None Visible, but [place] Anxiety: 2 Agitation: 0-Normal Activity Paroxysmal Sweats: 1-Minimal Palms Moist Orientation: 0-Oriented Tacttile Disturbances: 0-None Auditory Disturbances: 0-None Visual Disturbances: 0-None Headache: 0-None Present CIWA-Ar Total Score: 4 BHS Progress Note (SOAP) Subjective: 53 years old male admitted on 03/25/19 for alcohol withdrawal sx management treated with ativan detox regimen feeling better today slept through the night less tremor mild anxiety Objective: 03/28/19 14:17 Vital Signs Temperature 99 F 03/28/19 09:34 Pulse Rate 63 03/28/19 09:34 Respiratory Rate 18 03/28/19 09:34 Blood Pressure 116/78 03/28/19 09:34 O2 Sat by Pulse Oximetry (%) Laboratory Last Values WBC 2.5 K/mm3 (4.0-10.0) L 03/27/19 07:40 RBC 3.21 M/mm3 (4.00-5.60) L 03/27/19 07:40 Hgb 10.3 GM/dL (11.7-16.9) L 03/27/19 07:40 Hct 30.7 % (35.4-49) L 03/27/19 07:40 MCV 95.8 fl (80-96) 03/27/19 07:40 MCH 32.0 pg (25.7-33.7) 03/27/19 07:40 MCHC 33.4 g/dl (32.0-35.9) 03/27/19 07:40 RDW 13.3 % (11.9-15.9) 03/27/19 07:40 Plt Count 256 K/MM3 (134-434) 03/27/19 07:40 MPV 8.2 fl (7.5-11.1) 03/27/19 07:40 Sodium 140 mmol/L (136-145) 03/26/19 08:00 Potassium 4.1 mmol/L (3.5-5.1) 03/26/19 08:00 Chloride 110 mmol/L (98-107) H 03/26/19 08:00 Carbon Dioxide 28 mmol/L (21-32) 03/26/19 08:00 Anion Gap 3 MMOL/L (8-16) L 03/26/19 08:00 BUN 16.5 mg/dL (7-18) 03/26/19 08:00 Creatinine 0.9 mg/dL (0.55-1.3) 03/26/19 08:00 Est GFR (CKD-EPI)AfAm 112.62 03/26/19 08:00 Est GFR (CKD-EPI)NonAf 97.17 03/26/19 08:00 Random Glucose 99 mg/dL (74-106) 03/26/19 08:00 Calcium 7.9 mg/dL (8.5-10.1) L 03/26/19 08:00 Total Bilirubin 0.4 mg/dL (0.2-1) 03/26/19 08:00 AST 16 U/L (15-37) 03/26/19 08:00 ALT 52 U/L (13-61) 03/26/19 08:00 Alkaline Phosphatase 65 U/L (45-117) 03/26/19 08:00 Total Protein 5.6 g/dl (6.4-8.2) L 03/26/19 08:00 Albumin 2.7 g/dl (3.4-5.0) L 03/26/19 08:00 RPR Titer Nonreactive (NONREACTIVE) 03/26/19 08:00 lab noted 03/28/19 14:19 repeat c bc Assessment: 03/28/19 14:20 alcohol withdrawal sx Plan: continue ativan detox regimen
[2019-03-28] MEDS: THIAMINE HCL 100 MG TABLET (FP) PO SCH (23:43)
[2019-03-29] MEDS ORDERED: LORazepam 0.5 MG TABLET PO ONE (05:00)
[2019-03-29 07:22] VITALS: BP 100/60; PULSE 60; TEMP 97.2
[2019-03-29] MEDS: PRENATAL VITAMINS W/ FOLIC ACID TABLET (FP) PO SCH (09:16)
[2019-03-29] MEDS: FERROUS SO4 325 MG TABLET (FP) PO SCH (09:16)
--- NOTE | 2019-03-29 13:05 | DS ---
[facility] Detox Discharge Summary Admission Date: 03/25/19 Discharge Date: 03/29/19 - History Present History: Alcohol Dependence Additional Comments: 53 years old male admitted on 03/25/19 for alcohol withdrawal sx management treated with ativan detox regimen patient is alert oriented x 3 cardiac s1s2 regular rate rhythm respiratory clear lung bilaterally on auscultation abdomen soft no rebound tenderness - Physical Exam Results Vital Signs: Vital Signs Temperature 97.2 F L 03/29/19 07:21 Pulse Rate 60 03/29/19 07:21 Respiratory Rate 20 03/29/19 07:21 Blood Pressure 100/60 03/29/19 07:21 O2 Sat by Pulse Oximetry (%) Pertinent Admission Physical Exam Findings: alcohol withdrawal sx Laboratory Last Values WBC 2.5 K/mm3 (4.0-10.0) L 03/27/19 07:40 RBC 3.21 M/mm3 (4.00-5.60) L 03/27/19 07:40 Hgb 10.3 GM/dL (11.7-16.9) L 03/27/19 07:40 Hct 30.7 % (35.4-49) L 03/27/19 07:40 MCV 95.8 fl (80-96) 03/27/19 07:40 MCH 32.0 pg (25.7-33.7) 03/27/19 07:40 MCHC 33.4 g/dl (32.0-35.9) 03/27/19 07:40 RDW 13.3 % (11.9-15.9) 03/27/19 07:40 Plt Count 256 K/MM3 (134-434) 03/27/19 07:40 MPV 8.2 fl (7.5-11.1) 03/27/19 07:40 Sodium 140 mmol/L (136-145) 03/26/19 08:00 Potassium 4.1 mmol/L (3.5-5.1) 03/26/19 08:00 Chloride 110 mmol/L (98-107) H 03/26/19 08:00 Carbon Dioxide 28 mmol/L (21-32) 03/26/19 08:00 Anion Gap 3 MMOL/L (8-16) L 03/26/19 08:00 BUN 16.5 mg/dL (7-18) 03/26/19 08:00 Creatinine 0.9 mg/dL (0.55-1.3) 03/26/19 08:00 Est GFR (CKD-EPI)AfAm 112.62 03/26/19 08:00 Est GFR (CKD-EPI)NonAf 97.17 03/26/19 08:00 Random Glucose 99 mg/dL (74-106) 03/26/19 08:00 Calcium 7.9 mg/dL (8.5-10.1) L 03/26/19 08:00 Total Bilirubin 0.4 mg/dL (0.2-1) 03/26/19 08:00 AST 16 U/L (15-37) 03/26/19 08:00 ALT 52 U/L (13-61) 03/26/19 08:00 Alkaline Phosphatase 65 U/L (45-117) 03/26/19 08:00 Total Protein 5.6 g/dl (6.4-8.2) L 03/26/19 08:00 Albumin 2.7 g/dl (3.4-5.0) L 03/26/19 08:00 RPR Titer Nonreactive (NONREACTIVE) 03/26/19 08:00 lab noted patient agrees to bringing in lab report to aftercare for follow up - Treatment Hospital Course: Detox Protocol Followed, Detoxed Safely, Responded well, Discharged Condition Good, Rehab Referral Accepted Patient has Accepted a Rehab Referral to: [facility] - Medication Discharge Medications: Ambulatory Orders Amlodipine Besylate 10 mg PO DAILY 03/25/19 - Diagnosis (1) Nicotine dependence Current Visit: No Status: Acute Qualifiers: Nicotine product type: cigarettes Substance use status: in withdrawal Qualified Code(s): F17.213 - Nicotine dependence, cigarettes, with withdrawal (2) Alcohol dependence with uncomplicated withdrawal Current Visit: No Status: Acute - AMA Did Patient Leave Against Medical Advice: No CIWA Score - CIWA Score Nausea/Vomitin-No Nausea/No Vomiting Muscle Tremors: 1-None Visible, but [place] Anxiety: 0-No Anxiety, at Ease Agitation: 0-Normal Activity Paroxysmal Sweats: No Perspiration Orientation: 0-Oriented Tacttile Disturbances: 0-None Auditory Disturbances: 0-None Visual Disturbances: 0-None Headache: 0-None Present CIWA-Ar Total Score: 1
== END 2019-03-29 08:44 | disposition home or self-care (01) | DRG 774 ==
LOC: YASAS 17:52 → Y3N 22:37
PROVIDERS: ADMIT Allergy & Immunology; ATTEND Allergy & Immunology
PROC: HZ2ZZZZ Detoxification Services for Substance Abuse Treatment (ICD-10-PCS; principal; 2019-03-25)
DX: F10.230 Alcohol dependence with withdrawal, uncomplicated (principal); F14.20 Cocaine dependence, uncomplicated; F17.210 Nicotine dependence, cigarettes, uncomplicated
CPT/HCPCS: 36415; 80053; 85027; 86593